=== PATIENT | female | born 1995 | race Caucasian/White ===

== ENCOUNTER 2019-10-23 12:28 | Observation (INO) ==
[2019-10-23 14:39] LABS: Hematocrit [HCT] 33.2 % (37.0-47.0); MEAN CORPUSCULAR HGB CONC 33.1 g/dL (33-37); MEAN CORPUSCULAR VOLUME 87.6 FL (81-99); MEAN PLATELET VOLUME 9.2 FL (7.4-12.2); RED BLOOD COUNT 3.79 10^6/uL (4.20-5.40)
[2019-10-23 14:46] LABS: BLOOD UREA NITROGEN 6 mg/dL (7-22); SERUM ALBUMIN 3.5 g/dL (3.5-4.8)
[2019-10-23] MEDS ORDERED: ONDANSETRON 4 MG/2 ML VIAL IVP PRN (15:05)
[2019-10-23] MEDS ORDERED: LIDOCAINE W/ SODIUM BICARB 0.5 ML SYR SUBD PRN (15:05)
[2019-10-23] MEDS ORDERED: NIFEdipine 10 MG CAPSULE PO SCH (15:15)
[2019-10-23] MEDS: Lactated Ringers 1,000 ML PRIMARY IV SCH ×2 (15:54→18:22)
[2019-10-23] MEDS: NIFEdipine 10 MG CAPSULE PO SCH ×3 (16:02→20:48)
[2019-10-23] MEDS ORDERED: HYDROXYZINE PAMOATE 25 MG CAPSULE PO SCH (21:00)
[2019-10-23] MEDS ORDERED: CLOTRIMAZOLE 21 GM 3-DAY VAG CREAM VAGINAL SCH (21:00)
[2019-10-24] MEDS: NIFEdipine 10 MG CAPSULE PO SCH ×4 (00:30→13:08)
[2019-10-24] MEDS: Lactated Ringers 1,000 ML PRIMARY IV SCH ×2 (02:22→08:56)
[2019-10-24] MEDS ORDERED: Prenatal Multivitamin Tab 1 TAB TAB PO SCH (09:00)
[2019-10-24 14:13] LABS: Hematocrit [HCT] 33.1 % (37.0-47.0); Hemoglobin [HGB] 10.9 g/dL (12.0-16.0); MEAN CORPUSCULAR VOLUME 91 FL (81-99); RED BLOOD COUNT 3.63 10^6/uL (4.20-5.40)
[2019-10-24 14:14] LABS: MEAN CORPUSCULAR HGB CONC 32.9 g/dL (33-37); MEAN PLATELET VOLUME 7.4 FL (7.4-12.2)
== END 2019-10-24 15:20 | disposition home or self-care (01) ==
LOC: OBIP 12:28 → OBOP 12:28
PROVIDERS: ADMIT Obstetrics & Gynecology; ATTEND Obstetrics & Gynecology